=== PATIENT | female | born 1930 | race Caucasian/White ===

== ENCOUNTER → 2017-03-25 | Outpatient (CLI) | payer OTHER ==
[~2017-03-25] MED LIST: ACEB200C9 OR; AMAN100C12 OR; LATA0.0015 OP; METHIMAZOLE; OMEPRAZOLE; SELE5CAP OR
[2017-03-25 08:44] LABS: Basophils # (auto) 0 uL; Basophils % (auto) 0.5 % (0.0-2.0); CONDITION Y; Eosinophils # (auto) 0.1 uL; Eosinophils % (auto) 2.7 % (0.0-7.0); Hematocrit 42.2 % (36.0-46.0); Hemoglobin 14.2 g/dL (12.2-16.2); Lymphocytes # (auto) 1.1 uL; Lymphocytes % (auto) 20.1 % (10.0-50.0); Mean Corpuscular Hemoglobin 31.1 pg (28.0-32.0); Mean Corpuscular Hgb Conc. 33.7 g/dL (32.0-36.0); Mean Corpuscular Volume 92.3 fL (80.0-100.0); Mean Platelet Volume 8.3 fL (7.4-10.4); Monocytes # (auto) 0.4 uL; Monocytes % (auto) 7.4 % (0.0-12.0); Neutrophils # (auto) 3.7 uL; Neutrophils % (auto) 69.3 % (37.0-80.0); Platelet Count (auto) 233 10^3/uL (140-450); Red Cell Distribution Width 13.3 % (11.6-16.0); White Blood Cell 5.4 10^3/uL (4.4-10.8)
[2017-03-25 09:23] LABS: Albumin 3.7 g/dL (3.4-5.0); BUN/Creatinine Ratio 33.8; Bilirubin, Total 0.6 mg/dL (0.2-1.0); Total Protein 7.2 g/dL (6.4-8.2)
== END | disposition home or self-care (01) ==
LOC: LAB 08:16
PROVIDERS: ATTEND Internal Medicine
DX: G50.9 Disorder of trigeminal nerve, unspecified (principal); N18.2 Chronic kidney disease, stage 2 (mild); Z00.00 Encounter for general adult medical examination without abnormal findings
CPT/HCPCS: 36415; 80053; 80061; 82043; 82306; 84443; 85025

== ENCOUNTER → 2017-03-30 | Outpatient (CLI) | payer OTHER | END | disposition home or self-care (01) | LOC: LAB 11:00 | PROVIDERS: ATTEND Internal Medicine | DX: Z00.00 Encounter for general adult medical examination without abnormal findings (principal); N18.2 Chronic kidney disease, stage 2 (mild) | CPT/HCPCS: 82270 ==

== ENCOUNTER 2018-06-26 15:30 | Inpatient (IN) | payer OTHER ==
[~2018-06-26] VITALS: Ht 167.6 cm; Wt 62.9 kg
[2018-06-26] MEDS ORDERED: cloNIDine HCL 0.1 MG TAB PO ONE (16:15)
[2018-06-26 16:37] LABS: Urine Bacteria FEW /hpf (None Seen); Urine Blood Negative /uL (Negative); Urine Specific Gravity 1.007 (1.001-1.035); Urine WBC 3 /hpf (0 - 5)
[2018-06-26 17:05] LABS: Basophils # (auto) 0 uL; Basophils % (auto) 0.8 % (0.0-2.0); Eosinophils # (auto) 0.1 uL; Eosinophils % (auto) 1.7 % (0.0-7.0); Hematocrit 42.4 % (36.0-46.0); Hemoglobin 14.4 g/dL (12.2-16.2); Lymphocytes # (auto) 1.1 uL; Lymphocytes % (auto) 23.9 % (10.0-50.0); Mean Corpuscular Hemoglobin 31.8 pg (28.0-32.0); Mean Corpuscular Hgb Conc. 33.9 g/dL (32.0-36.0); Mean Corpuscular Volume 93.8 fL (80.0-100.0); Monocytes # (auto) 0.3 uL; Monocytes % (auto) 6.4 % (0.0-12.0); Neutrophils % (auto) 67.2 % (37.0-80.0); Nucleated Red Blood Cells % 0.1 %; Platelet Count (auto) 193 10^3/uL (140-450); Red Blood Cells 4.52 10^6/uL (4.0-5.20); Red Cell Distribution Width 13.3 % (11.8-14.3); White Blood Cell 4.5 10^3/uL (4.4-10.8)
[2018-06-26 17:25] LABS: Albumin 3.6 g/dL (3.4-5.0); BUN/Creatinine Ratio 19.3; Bilirubin, Total 0.5 mg/dL (0.2-1.0); Magnesium 2.8 mg/dL (1.6-2.6); Total Protein 7.4 g/dL (6.4-8.2)
[2018-06-26] MEDS ORDERED: ENOXAPARIN SOD 80 MG/0.8ML SYRINGE SC ONE (17:45)
[2018-06-26] MEDS ORDERED: HYDROcodone-ACET 5/325MG TAB PO PRN (19:00)
[2018-06-26] MEDS ORDERED: LORazepam 0.5 MG TAB PO PRN (19:00)
[2018-06-26] MEDS ORDERED: ONDANSETRON HCL 4 MG/2 ML VIAL IV PRN (19:00)
[2018-06-26] MEDS ORDERED: NITROGLYCERIN 0.4 MG SL TAB SL PRN (19:00)
[2018-06-26] MEDS ORDERED: TEMAZEPAM 15 MG CAP PO PRN (19:00)
[2018-06-26] MEDS ORDERED: ACETAMINOPHEN 500 MG TAB PO PRN (19:00)
[2018-06-26] MEDS ORDERED: MORPHINE SULFATE 4 MG/ML SYR/VIAL IV PRN ×2 (19:00)
[2018-06-26] MEDS ORDERED: LACTULOSE 20Gm/30ML SOLN PO PRN (19:00)
[2018-06-26] MEDS ORDERED: LABETALOL HCL 5 MG/ML ML 20ML VIAL IV PRN (21:15)
[2018-06-26] MEDS: ATORVASTATIN 20 MG TAB PO SCH (21:47)
[2018-06-26] MEDS: SODIUM CHLOR 0.9% PF (SALINE LOCK) 10ML VIAL/SYR IV SCH (21:47)
[2018-06-26] MEDS: ISOSORBIDE DINITRATE 10 MG TAB PO SCH (21:47)
[2018-06-26] MEDS: CARBIDOPA W LEVODOPA 10/100mg TABLET PO SCH (21:48)
[2018-06-26] MEDS: METOPROLOL TARTRATE 25 MG TAB PO SCH (21:48)
[2018-06-26] MEDS ORDERED: AMANTADINE HCL 100 MG OR SCH (22:00)
[2018-06-26] MEDS ORDERED: cefTRIAXone 1GM/10ml IVPUSH 10 ML IV ONE (22:30)
[2018-06-26 23:11] VITALS: BP 108/54
[2018-06-26 23:47] VITALS: BP 156/85
[2018-06-27 03:56] LABS: BUN/Creatinine Ratio 25.4; Calcium 8.2 mg/dL (8.5-10.1); Potassium 3.9 mmol/L (3.5-5.1)
[2018-06-27 03:58] LABS: Bilirubin, Total 0.5 mg/dL (0.2-1.0); Total Protein 6.3 g/dL (6.4-8.2)
[2018-06-27] MEDS: SODIUM CHLOR 0.9% PF (SALINE LOCK) 10ML VIAL/SYR IV SCH ×3 (06:16→21:35)
[2018-06-27] MEDS: ISOSORBIDE DINITRATE 10 MG TAB PO SCH ×3 (06:16→21:34)
[2018-06-27] MEDS: CARBIDOPA W LEVODOPA 10/100mg TABLET PO SCH (06:17)
[2018-06-27 08:00] VITALS: BP 110/63
[2018-06-27 09:46] LABS: Folate (Folic Acid) > 24.00 ng/mL (5.38-24)
[2018-06-27] MEDS ORDERED: ASPirin 81 mg TAB PO SCH (10:00)
[2018-06-27] MEDS ORDERED: METHIMAZOLE 5 MG SCH (10:00)
[2018-06-27] MEDS: METOPROLOL TARTRATE 25 MG TAB PO SCH ×2 (10:00→21:35)
[2018-06-27] MEDS ORDERED: AMANTADINE HCL 100 MG CAP PO SCH (10:00)
[2018-06-27] MEDS ORDERED: ENOXAPARIN SOD 40 MG/0.4 ML SYRINGE SC SCH (10:00)
[2018-06-27] MEDS: METHIMAZOLE 5 MG TAB PO SCH (10:34)
[2018-06-27] MEDS: PANTOPRAZOLE 40 MG TAB PO SCH (10:37)
[2018-06-27] MEDS: ENALAPRIL MALEATE 10 MG TAB PO SCH (10:37)
[2018-06-27 11:45] VITALS: BP 118/62
[2018-06-27] MEDS: CARBIDOPA W LEVODOPA 25/100mg TABLET PO SCH ×2 (15:01→21:50)
[2018-06-27 15:55] VITALS: BP 92/47
[2018-06-27 19:50] VITALS: BP 121/58
[2018-06-27] MEDS: ATORVASTATIN 20 MG TAB PO SCH (21:49)
[2018-06-27] MEDS: LATANOPROST 0.005 % OPTH(EYE) SOL 2.5ML EACHEYE SCH (21:49)
[2018-06-27] MEDS ORDERED: cefTRIAXone 1GM/10ml IVPUSH 10 ML IV SCH (22:00)
[2018-06-28] VITALS (7 sets, daily range): BP systolic 112–174; BP diastolic 57–86
[2018-06-28 05:32] LABS: Basophils # (auto) 0 uL; Basophils % (auto) 0.8 % (0.0-2.0); Eosinophils # (auto) 0.2 uL; Hematocrit 38.2 % (36.0-46.0); Hemoglobin 12.9 g/dL (12.2-16.2); Lymphocytes # (auto) 1.7 uL; Mean Corpuscular Hemoglobin 31.7 pg (28.0-32.0); Mean Corpuscular Hgb Conc. 33.8 g/dL (32.0-36.0); Monocytes # (auto) 0.5 uL; Neutrophils % (auto) 55.2 % (37.0-80.0); Nucleated Red Blood Cells % 0.1 %; Platelet Count (auto) 158 10^3/uL (140-450); Red Blood Cells 4.07 10^6/uL (4.0-5.20); Red Cell Distribution Width 13.4 % (11.8-14.3); White Blood Cell 5.4 10^3/uL (4.4-10.8)
[2018-06-28] MEDS: SODIUM CHLOR 0.9% PF (SALINE LOCK) 10ML VIAL/SYR IV SCH ×3 (05:54→21:45)
[2018-06-28] MEDS: ISOSORBIDE DINITRATE 10 MG TAB PO SCH ×3 (05:56→21:45)
[2018-06-28] MEDS: CARBIDOPA W LEVODOPA 25/100mg TABLET PO SCH ×3 (05:56→21:46)
[2018-06-28 06:02] LABS: BUN/Creatinine Ratio 30.4; Calcium 8.5 mg/dL (8.5-10.1); Magnesium 2.8 mg/dL (1.6-2.6); Potassium 3.9 mmol/L (3.5-5.1)
[2018-06-28] MEDS ORDERED: ADENOSINE 54 MG in GIVE UN-DILUTED 0 ML IV ONE (09:30)
[2018-06-28] MEDS: METOPROLOL TARTRATE 25 MG TAB PO SCH ×2 (09:39→21:46)
[2018-06-28] MEDS: METHIMAZOLE 5 MG TAB PO SCH (09:40)
[2018-06-28] MEDS: PANTOPRAZOLE 40 MG TAB PO SCH (09:40)
[2018-06-28] MEDS: ENALAPRIL MALEATE 10 MG TAB PO SCH (09:42)
[2018-06-28] MEDS ORDERED: ATOR10TA PO (10:57)
[2018-06-28] MEDS ORDERED: MET25T PO (11:07)
[2018-06-28] MEDS ORDERED: CARB25TA22 PO (11:10)
[2018-06-28] MEDS ORDERED: OMEP20TA PO (11:13)
[2018-06-28] MEDS ORDERED: RASA1TAB4 PO (11:25)
[2018-06-28] MEDS ORDERED: LISI-646 PO (11:34)
[2018-06-28] MEDS: LATANOPROST 0.005 % OPTH(EYE) SOL 2.5ML EACHEYE SCH (21:45)
[2018-06-28] MEDS: ATORVASTATIN 20 MG TAB PO SCH (21:46)
[2018-06-29] VITALS (7 sets, daily range): BP systolic 91–148; BP diastolic 39–87
[2018-06-29] MEDS: SODIUM CHLOR 0.9% PF (SALINE LOCK) 10ML VIAL/SYR IV SCH ×3 (05:35→22:30)
[2018-06-29] MEDS: ISOSORBIDE DINITRATE 10 MG TAB PO SCH (05:36)
[2018-06-29] MEDS: CARBIDOPA W LEVODOPA 25/100mg TABLET PO SCH ×3 (05:36→22:08)
[2018-06-29 05:45] LABS: Basophils # (auto) 0 uL; Basophils % (auto) 0.9 % (0.0-2.0); Eosinophils # (auto) 0.2 uL; Eosinophils % (auto) 4.1 % (0.0-7.0); Hematocrit 40.5 % (36.0-46.0); Hemoglobin 13.9 g/dL (12.2-16.2); Lymphocytes # (auto) 1.4 uL; Lymphocytes % (auto) 28.4 % (10.0-50.0); Mean Corpuscular Hemoglobin 31.9 pg (28.0-32.0); Mean Corpuscular Hgb Conc. 34.2 g/dL (32.0-36.0); Mean Corpuscular Volume 93.2 fL (80.0-100.0); Monocytes # (auto) 0.5 uL; Monocytes % (auto) 10.6 % (0.0-12.0); Neutrophils # (auto) 2.8 uL; Nucleated Red Blood Cells % 0.1 %; Platelet Count (auto) 175 10^3/uL (140-450); Red Blood Cells 4.34 10^6/uL (4.0-5.20); Red Cell Distribution Width 13.1 % (11.8-14.3)
[2018-06-29 05:50] LABS: INR 1.01 (0.9-1.15); Partial Thromboplastin Time 27.4 sec (23.78-33.04); Prothrombin Time 10.8 sec (9.27-12.13)
[2018-06-29 05:55] LABS: Albumin 3.1 g/dL (3.4-5.0); BUN/Creatinine Ratio 32.9; Calcium 8.1 mg/dL (8.5-10.1)
[2018-06-29 05:57] LABS: Bilirubin, Total 0.5 mg/dL (0.2-1.0); Total Protein 6.6 g/dL (6.4-8.2)
[2018-06-29] MEDS: METOPROLOL TARTRATE 25 MG TAB PO SCH ×2 (10:42→22:00)
[2018-06-29] MEDS: LISINOPRIL 20 MG TAB PO SCH (10:42)
[2018-06-29] MEDS: PANTOPRAZOLE 40 MG TAB PO SCH (10:43)
[2018-06-29] MEDS: METHIMAZOLE 5 MG TAB PO SCH (10:43)
[2018-06-29] MEDS ORDERED: LIDOCAINE 2%HCL (LOCAL ANESTH.) INJ 20ML MDV ONE (13:50)
[2018-06-29] MEDS ORDERED: IOHEXOL 350 MG/ML 100ML IJ ONE (13:50)
[2018-06-29] MEDS ORDERED: ANGIOMAX 250 MG VIAL IV ONE (14:00)
[2018-06-29] MEDS ORDERED: SODIUM CHL 0.9% 0 ML ONE (14:01)
[2018-06-29] MEDS ORDERED: MIDAZOLAM HCL 1MG/1ML-2 ML VIAL ONE (14:01)
[2018-06-29] MEDS ORDERED: fentaNYL CITRATE 100 MCG/2 ML VL ONE (14:01)
[2018-06-29] MEDS ORDERED: hydrALAZINE HCL 20 MG/ML VL ONE (15:23)
[2018-06-29] MEDS: ATORVASTATIN 20 MG TAB PO SCH (22:08)
[2018-06-29] MEDS: LATANOPROST 0.005 % OPTH(EYE) SOL 2.5ML EACHEYE SCH (22:14)
[2018-06-30] VITALS: BP 110/75
[2018-06-30 04:00] VITALS: BP 110/56
[2018-06-30] MEDS: CARBIDOPA W LEVODOPA 25/100mg TABLET PO SCH (06:01)
[2018-06-30] MEDS: SODIUM CHLOR 0.9% PF (SALINE LOCK) 10ML VIAL/SYR IV SCH (06:01)
[2018-06-30 06:15] VITALS: BP 131/57
[2018-06-30 08:40] VITALS: BP 121/72
[2018-06-30] MEDS: LISINOPRIL 20 MG TAB PO SCH (11:10)
[2018-06-30] MEDS: METHIMAZOLE 5 MG TAB PO SCH (11:10)
[2018-06-30] MEDS: METOPROLOL TARTRATE 25 MG TAB PO SCH (11:11)
[2018-06-30] MEDS: PANTOPRAZOLE 40 MG TAB PO SCH (11:11)
== END 2018-06-30 11:25 | disposition home health service (06) | DRG 280 ==
LOC: ER 15:30 → EDBD 15:30 → TELE 15:31 → TELE-WESTW 20:20 → DOU IN ICU 21:30
PROVIDERS: ADMIT Internal Medicine; ATTEND Internal Medicine
PROC: 4A023N7 Measurement of Cardiac Sampling and Pressure, Left Heart, Percutaneous Approach (ICD-10-PCS; principal; 2018-06-29)
PROC: B2111ZZ Fluoroscopy of Multiple Coronary Arteries using Low Osmolar Contrast (ICD-10-PCS; 2018-06-29)
PROC: B2151ZZ Fluoroscopy of Left Heart using Low Osmolar Contrast (ICD-10-PCS; 2018-06-29)
DX: I21.4 Non-ST elevation (NSTEMI) myocardial infarction (principal); G93.41 Metabolic encephalopathy; N39.0 Urinary tract infection, site not specified; I16.1 Hypertensive emergency; I62.9 Nontraumatic intracranial hemorrhage, unspecified; E05.90 Thyrotoxicosis, unspecified without thyrotoxic crisis or storm; E78.5 Hyperlipidemia, unspecified; F17.200 Nicotine dependence, unspecified, uncomplicated; G20 Parkinson's disease; G89.29 Other chronic pain; I10 Essential (primary) hypertension; I25.10 Atherosclerotic heart disease of native coronary artery without angina pectoris; I70.0 Atherosclerosis of aorta; I73.9 Peripheral vascular disease, unspecified; W19.XXXA Unspecified fall, initial encounter; W18.39XA Other fall on same level, initial encounter; L40.9 Psoriasis, unspecified; M19.90 Unspecified osteoarthritis, unspecified site; M48.00 Spinal stenosis, site unspecified; Y93.89 Activity, other specified; Y92.89 Other specified places as the place of occurrence of the external cause; Z80.8 Family history of malignant neoplasm of other organs or systems; Z82.49 Family history of ischemic heart disease and other diseases of the circulatory system; Z90.710 Acquired absence of both cervix and uterus; Z79.899 Other long term (current) drug therapy; Z88.0 Allergy status to penicillin; Z79.82 Long term (current) use of aspirin; Z90.49 Acquired absence of other specified parts of digestive tract
CPT/HCPCS: 36415; 70450; 71045; 80048; 80053; 80061; 81001; 82607; 82746; 83735; 83880; 84443; 84484; 85025; 85610; 85652; 85730; 86141; 86850; 86900; 86901; 87086; 93005; 93017; 93306; 93886; 93970; 96372; 96374; 97116; 99152; A6257; J0153; J0696; J2250

== ENCOUNTER → 2019-06-07 | Outpatient (CLI) | payer OTHER ==
[~2019-06-07] MED LIST changes: -ACEB200C9 OR; +ATOR10TA PO; +CARB25TA22 PO; +LISI-646 PO; +MET25T PO; +OMEP20TA PO; +RASA1TAB4 PO
[2019-06-07 08:37] LABS: Basophils # (auto) 0 uL; Basophils % (auto) 1.1 % (0.0-2.0); Eosinophils # (auto) 0.1 uL; Eosinophils % (auto) 2.7 % (0.0-7.0); Hematocrit 40.3 % (36.0-46.0); Hemoglobin 13.6 g/dL (12.2-16.2); Lymphocytes % (auto) 26.1 % (10.0-50.0); Mean Corpuscular Hemoglobin 31.3 pg (28.0-32.0); Mean Corpuscular Hgb Conc. 33.8 g/dL (32.0-36.0); Mean Corpuscular Volume 92.5 fL (80.0-100.0); Monocytes # (auto) 0.3 uL; Monocytes % (auto) 8.3 % (0.0-12.0); Neutrophils # (auto) 2.3 uL; Neutrophils % (auto) 61.8 % (37.0-80.0); Nucleated Red Blood Cells % 0.2 %; Platelet Count (auto) 158 10^3/uL (140-450); Red Blood Cells 4.36 10^6/uL (4.0-5.20); Red Cell Distribution Width 13.4 % (11.8-14.3); White Blood Cell 3.7 10^3/uL (4.4-10.8)
[2019-06-07 09:14] LABS: Potassium 4.1 mmol/L (3.5-5.1)
[2019-06-07 09:21] LABS: Albumin 3.5 g/dL (3.4-5.0); BUN/Creatinine Ratio 25.3; Calcium 8.4 mg/dL (8.5-10.1)
[2019-06-07 09:24] LABS: Bilirubin, Total 0.5 mg/dL (0.2-1.0); Total Protein 6.9 g/dL (6.4-8.2)
== END | disposition home or self-care (01) ==
LOC: LAB 08:06
PROVIDERS: ATTEND Internal Medicine
DX: Z12.11 Encounter for screening for malignant neoplasm of colon (principal); I10 Essential (primary) hypertension; R60.9 Edema, unspecified; E78.5 Hyperlipidemia, unspecified; G89.29 Other chronic pain
CPT/HCPCS: 36415; 80053; 80061; 82306; 84443; 85025

== ENCOUNTER → 2019-06-16 | Outpatient (CLI) | payer OTHER | END | disposition home or self-care (01) | LOC: LAB 12:36 | PROVIDERS: ATTEND Internal Medicine | DX: Z12.11 Encounter for screening for malignant neoplasm of colon (principal); I10 Essential (primary) hypertension; R60.9 Edema, unspecified | CPT/HCPCS: 82274 ==

== ENCOUNTER → 2021-02-11 | Outpatient (CLI) | payer OTHER ==
[~2021-02-11] MED LIST changes: -LATA0.0015 OP; +LATA0.0019 OP; -LISI-646 PO; +LISI20TA28 PO; -SELE5CAP OR; +SELE5CAP3 OR
[2021-02-11 08:16] LABS: Basophils # (auto) 0 10 ^3/uL (0-0.2); Basophils % (auto) 1.1 % (0.0-2.0); Eosinophils # (auto) 0.1 10 ^3/uL (0-0.8); Eosinophils % (auto) 1.8 % (0.0-7.0); Hematocrit 39.9 % (36.0-46.0); Hemoglobin 13.6 g/dL (12.2-16.2); Lymphocytes # (auto) 0.9 10 ^3/uL (0.4-5.4); Lymphocytes % (auto) 22.5 % (10.0-50.0); Mean Corpuscular Hemoglobin 31.4 pg (28.0-32.0); Mean Corpuscular Hgb Conc. 34.2 g/dL (32.0-36.0); Mean Corpuscular Volume 91.8 fL (80.0-100.0); Monocytes # (auto) 0.4 10 ^3/uL (0-1.3); Monocytes % (auto) 8.6 % (0.0-12.0); Neutrophils # (auto) 2.8 10 ^3/uL (1.6-8.6); Nucleated Red Blood Cells % 0.3 %; Platelet Count (auto) 211 10^3/uL (140-450); Red Blood Cells 4.35 10^6/uL (4.0-5.20); Red Cell Distribution Width 13.7 % (11.8-14.3); White Blood Cell 4.2 10^3/uL (4.4-10.8)
[2021-02-11 08:43] LABS: Albumin 3.7 g/dL (3.4-5.0); Calcium 8.8 mg/dL (8.5-10.1); Potassium 3.9 mmol/L (3.5-5.1)
[2021-02-11 08:51] LABS: BUN/Creatinine Ratio 36.6; Bilirubin, Total 0.6 mg/dL (0.2-1.0); Total Protein 7.5 g/dL (6.4-8.2)
[2021-02-11 08:52] LABS: Free T4 (Free Thyroxine) 1.32 ng/dL (0.89-1.76); T3 Total 0.81 ng/mL (0.60-1.81)
== END | disposition home or self-care (01) ==
LOC: LAB 07:31
PROVIDERS: ATTEND Internal Medicine
DX: I10 Essential (primary) hypertension (principal); E78.5 Hyperlipidemia, unspecified; E03.9 Hypothyroidism, unspecified
CPT/HCPCS: 36415; 80053; 80061; 82306; 84439; 84443; 84480; 85025

== ENCOUNTER 2021-03-15 13:13 | Inpatient (IN) | payer OTHER ==
[~2021-03-15] VITALS: Ht 152.4 cm; Wt 67.5 kg
[2021-03-15 13:59] LABS: Basophils # (auto) 0 10 ^3/uL (0-0.2); Basophils % (auto) 0.8 % (0.0-2.0); Eosinophils # (auto) 0.1 10 ^3/uL (0-0.8); Eosinophils % (auto) 2.4 % (0.0-7.0); Hematocrit 39.8 % (36.0-46.0); Hemoglobin 13.7 g/dL (12.2-16.2); Lymphocytes # (auto) 0.7 10 ^3/uL (0.4-5.4); Lymphocytes % (auto) 12.6 % (10.0-50.0); Mean Corpuscular Hemoglobin 32.1 pg (28.0-32.0); Mean Corpuscular Hgb Conc. 34.6 g/dL (32.0-36.0); Mean Corpuscular Volume 92.8 fL (80.0-100.0); Monocytes # (auto) 0.5 10 ^3/uL (0-1.3); Monocytes % (auto) 8.3 % (0.0-12.0); Neutrophils # (auto) 4.4 10 ^3/uL (1.6-8.6); Neutrophils % (auto) 75.9 % (37.0-80.0); Platelet Count (auto) 188 10^3/uL (140-450); Red Blood Cells 4.29 10^6/uL (4.0-5.20); Red Cell Distribution Width 13.4 % (11.8-14.3); White Blood Cell 5.7 10^3/uL (4.4-10.8)
[2021-03-15] MEDS ORDERED: SODIUM CHLORIDE 0.9% 1,000 ML IVB ONE (14:15)
[2021-03-15 14:16] LABS: Alanine Aminotransferase 38 U/L (13-56); Albumin 3.2 g/dL (3.4-5.0); Anion Gap 7 (5-15); Blood Urea Nitrogen 30 mg/dL (7-18); Calcium 8.7 mg/dL (8.5-10.1); Carbon Dioxide 26 mmol/L (21-32); Chloride 110 mmol/L (98-107); Glucose 97 mg/dL (74-106); Magnesium 2.7 mg/dL (1.6-2.6); Potassium 3.4 mmol/L (3.5-5.1); Sodium 143 mmol/L (136-145)
[2021-03-15 14:22] LABS: Alkaline Phosphatase 64 U/L (45-117); Aspartate Aminotransferase 127 U/L (15-37); BUN/Creatinine Ratio 33.3; Bilirubin, Total 0.8 mg/dL (0.2-1.0); GFR African American 76 mL/min; GFR Non-African American 63 mL/min; Total Protein 6.7 g/dL (6.4-8.2)
[2021-03-15 15:00] LABS: Lactic Acid w/Reflex 2.1 mmol/L (0.4-2.0)
[2021-03-15 15:24] LABS: INR 1.06 (0.9-1.15); Partial Thromboplastin Time 23.2 sec (23.0-31.2)
[2021-03-15] MEDS ORDERED: NITROGLYCERIN 0.4 MG SL TAB SL PRN (17:00)
[2021-03-15] MEDS ORDERED: MORPHINE SULF INJ 2 MG/ML SYRINGE 1ML IV PRN ×2 (17:00)
[2021-03-15] MEDS ORDERED: DOCUSATE SOD 100 MG CAP PO PRN (17:00)
[2021-03-15] MEDS ORDERED: ONDANSETRON HCL 4 MG/2 ML VIAL IV PRN (17:00)
[2021-03-15] MEDS ORDERED: POTASSIUM EFFERVESENT TAB 25 MEQ PO ONE (17:15)
[2021-03-15] MEDS ORDERED: levoFLOXacin 500MG 100 ML IV SCH (17:44)
[2021-03-15] MEDS ORDERED: levoFLOXacin 500MG 100 ML IV ONE (17:45)
[2021-03-15] MEDS: METOPROLOL TARTRATE 25 MG TAB PO SCH (21:01)
[2021-03-15 21:32] VITALS: BP 160/68
[2021-03-15] MEDS: SELEGILINE HCL 5 MG CAP PO SCH (21:55)
[2021-03-15] MEDS: LATANOPROST 0.005 % OPTH(EYE) SOL 2.5ML OP SCH (22:00)
[2021-03-15] MEDS: AMANTADINE HCL 100 MG CAP PO SCH (22:00)
[2021-03-15] MEDS: CLINDAMYCIN 300MG IV 50 ML IV SCH (22:58)
[2021-03-16 00:19] VITALS: BP 160/68
[2021-03-16 05:00] VITALS: BP 144/76
[2021-03-16] MEDS: CLINDAMYCIN 300MG IV 50 ML IV SCH ×3 (05:44→22:00)
[2021-03-16 06:49] LABS: Calcium 8.1 mg/dL (8.5-10.1); Potassium 3.9 mmol/L (3.5-5.1)
[2021-03-16 06:53] LABS: BUN/Creatinine Ratio 29.7
[2021-03-16 09:00] VITALS: BP 148/70
[2021-03-16] MEDS: SELEGILINE HCL 5 MG CAP PO SCH ×2 (10:00→22:00)
[2021-03-16] MEDS ORDERED: FAMOTIDINE 20 MG TAB PO SCH (10:00)
[2021-03-16] MEDS: LISINOPRIL 20 MG TAB PO SCH (10:30)
[2021-03-16] MEDS: METOPROLOL TARTRATE 25 MG TAB PO SCH ×2 (10:30→22:03)
[2021-03-16] MEDS: AMANTADINE HCL 100 MG CAP PO SCH ×2 (10:30→22:04)
[2021-03-16] MEDS: levoFLOXacin 250MG 50 ML IV SCH (10:59)
[2021-03-16 13:00] VITALS: BP 113/77
[2021-03-16] MEDS: methIMAzole 5 MG TAB PO SCH (14:36)
[2021-03-16] MEDS: PANTOPRAZOLE 40 MG TAB PO SCH (14:37)
[2021-03-16] MEDS: CARBIDOPA W LEVODOPA 25/100mg TABLET PO SCH ×2 (14:38→22:03)
[2021-03-16] MEDS ORDERED: POTA10TA51 PO (17:19)
[2021-03-16] MEDS ORDERED: FURO20TA3 PO (17:19)
[2021-03-16] MEDS ORDERED: MELO1TAB56 PO (17:19)
[2021-03-16] MEDS ORDERED: OXYB5TAB61 GT (17:19)
[2021-03-16] MEDS ORDERED: DONE1TAB88 PO (17:19)
[2021-03-16] MEDS ORDERED: TRAZ50TA2 PO (17:19)
[2021-03-16 22:00] VITALS: BP 134/58
[2021-03-16] MEDS: LATANOPROST 0.005 % OPTH(EYE) SOL 2.5ML OP SCH (22:00)
[2021-03-16] MEDS: ATORVASTATIN 20 MG TAB PO SCH (22:03)
[2021-03-17 04:44] VITALS: BP 122/63
[2021-03-17] MEDS: CLINDAMYCIN 300MG IV 50 ML IV SCH ×3 (06:23→21:11)
[2021-03-17] MEDS: CARBIDOPA W LEVODOPA 25/100mg TABLET PO SCH ×3 (06:23→21:11)
[2021-03-17 06:45] LABS: Basophils # (auto) 0.1 10 ^3/uL (0-0.2); Eosinophils # (auto) 0.3 10 ^3/uL (0-0.8); Eosinophils % (auto) 5.2 % (0.0-7.0); Hemoglobin 12.6 g/dL (12.2-16.2); Lymphocytes # (auto) 0.9 10 ^3/uL (0.4-5.4); Lymphocytes % (auto) 15.9 % (10.0-50.0); Mean Corpuscular Hemoglobin 31.5 pg (28.0-32.0); Mean Corpuscular Hgb Conc. 34.1 g/dL (32.0-36.0); Mean Corpuscular Volume 92.2 fL (80.0-100.0); Monocytes # (auto) 0.5 10 ^3/uL (0-1.3); Monocytes % (auto) 9.6 % (0.0-12.0); Neutrophils # (auto) 3.9 10 ^3/uL (1.6-8.6); Neutrophils % (auto) 68.3 % (37.0-80.0); Platelet Count (auto) 169 10^3/uL (140-450); Red Blood Cells 4.01 10^6/uL (4.0-5.20); Red Cell Distribution Width 13.2 % (11.8-14.3); White Blood Cell 5.7 10^3/uL (4.4-10.8)
[2021-03-17 07:01] LABS: BUN/Creatinine Ratio 28.1; Calcium 7.9 mg/dL (8.5-10.1); Potassium 3.7 mmol/L (3.5-5.1)
[2021-03-17 09:00] VITALS: BP 119/52
[2021-03-17] MEDS: methIMAzole 5 MG TAB PO SCH (09:12)
[2021-03-17] MEDS: METOPROLOL TARTRATE 25 MG TAB PO SCH (09:12)
[2021-03-17] MEDS: LISINOPRIL 20 MG TAB PO SCH (09:13)
[2021-03-17] MEDS: PANTOPRAZOLE 40 MG TAB PO SCH (09:13)
[2021-03-17] MEDS: AMANTADINE HCL 100 MG CAP PO SCH ×2 (09:14→21:12)
[2021-03-17] MEDS: levoFLOXacin 250MG 50 ML IV SCH (09:18)
[2021-03-17] MEDS: SELEGILINE HCL 5 MG CAP PO SCH ×2 (09:18→21:12)
[2021-03-17 12:49] VITALS: BP 157/61
[2021-03-17 16:47] VITALS: BP 162/73
[2021-03-17] MEDS: ATORVASTATIN 20 MG TAB PO SCH (21:11)
[2021-03-17] MEDS: LATANOPROST 0.005 % OPTH(EYE) SOL 2.5ML OP SCH (21:49)
[2021-03-17 22:00] VITALS: BP 166/45
[2021-03-18 05:00] VITALS: BP 159/71
[2021-03-18] MEDS: CARBIDOPA W LEVODOPA 25/100mg TABLET PO SCH ×3 (05:40→21:21)
[2021-03-18] MEDS: CLINDAMYCIN 300MG IV 50 ML IV SCH ×3 (05:41→21:22)
[2021-03-18 06:36] LABS: Basophils # (auto) 0.1 10 ^3/uL (0-0.2); Eosinophils # (auto) 0.3 10 ^3/uL (0-0.8); Eosinophils % (auto) 5.8 % (0.0-7.0); Hemoglobin 14.1 g/dL (12.2-16.2); Lymphocytes # (auto) 0.9 10 ^3/uL (0.4-5.4); Lymphocytes % (auto) 15.8 % (10.0-50.0); Mean Corpuscular Hemoglobin 32.3 pg (28.0-32.0); Mean Corpuscular Hgb Conc. 35.2 g/dL (32.0-36.0); Mean Corpuscular Volume 91.9 fL (80.0-100.0); Monocytes # (auto) 0.5 10 ^3/uL (0-1.3); Monocytes % (auto) 8.8 % (0.0-12.0); Neutrophils # (auto) 3.7 10 ^3/uL (1.6-8.6); Neutrophils % (auto) 68.6 % (37.0-80.0); Nucleated Red Blood Cells % 0.2 %; Platelet Count (auto) 163 10^3/uL (140-450); Red Blood Cells 4.36 10^6/uL (4.0-5.20); Red Cell Distribution Width 13.1 % (11.8-14.3); White Blood Cell 5.4 10^3/uL (4.4-10.8)
[2021-03-18 06:45] LABS: BUN/Creatinine Ratio 23.8; Calcium 8.4 mg/dL (8.5-10.1); Potassium 3.8 mmol/L (3.5-5.1)
[2021-03-18 08:00] VITALS: BP 157/65
[2021-03-18] MEDS: levoFLOXacin 250MG 50 ML IV SCH (09:19)
[2021-03-18] MEDS: LISINOPRIL 20 MG TAB PO SCH (09:20)
[2021-03-18] MEDS: AMANTADINE HCL 100 MG CAP PO SCH ×2 (09:20→22:47)
[2021-03-18] MEDS: amLODIPine BESYLATE 5 MG TAB PO SCH (09:20)
[2021-03-18] MEDS: PANTOPRAZOLE 40 MG TAB PO SCH (09:20)
[2021-03-18] MEDS: methIMAzole 5 MG TAB PO SCH (09:20)
[2021-03-18] MEDS: SELEGILINE HCL 5 MG CAP PO SCH ×2 (09:21→21:23)
[2021-03-18 12:00] VITALS: BP 116/63
[2021-03-18 13:11] LABS: Urine Bacteria FEW /hpf (None Seen); Urine Blood Negative /uL (Negative); Urine Hyaline Cast FEW /lpf (0 - 2); Urine Mucus FEW (None Seen); Urine Specific Gravity 1.011 (1.001-1.035); Urine WBC 2 /hpf (0 - 5)
[2021-03-18 16:00] VITALS: BP 140/74
[2021-03-18] MEDS: ATORVASTATIN 20 MG TAB PO SCH (21:20)
[2021-03-18] MEDS: DONEPEZIL HYDROCHLORIDE 5 MG TAB PO SCH (21:22)
[2021-03-18] MEDS: LATANOPROST 0.005 % OPTH(EYE) SOL 2.5ML OP SCH ×2 (21:22→22:00)
[2021-03-18 22:00] VITALS: BP 152/68
[2021-03-19 05:00] VITALS: BP 159/49
[2021-03-19] MEDS: CLINDAMYCIN 300MG IV 50 ML IV SCH (05:20)
[2021-03-19] MEDS: CARBIDOPA W LEVODOPA 25/100mg TABLET PO SCH ×3 (05:21→21:10)
[2021-03-19 08:15] VITALS: BP 140/71
[2021-03-19 09:00] VITALS: BP 140/71
[2021-03-19] MEDS: methIMAzole 5 MG TAB PO SCH (09:31)
[2021-03-19] MEDS: levoFLOXacin 250MG 50 ML IV SCH (09:31)
[2021-03-19] MEDS: PANTOPRAZOLE 40 MG TAB PO SCH (09:32)
[2021-03-19] MEDS: LISINOPRIL 20 MG TAB PO SCH (09:32)
[2021-03-19] MEDS: amLODIPine BESYLATE 5 MG TAB PO SCH (09:32)
[2021-03-19] MEDS: AMANTADINE HCL 100 MG CAP PO SCH ×2 (09:33→21:25)
[2021-03-19] MEDS: SELEGILINE HCL 5 MG CAP PO SCH ×2 (10:00→21:09)
[2021-03-19] MEDS ORDERED: POTASSIUM CHL 10 Meq TABLET PO ONE (11:00)
[2021-03-19] MEDS ORDERED: FUROSEMIDE 20 MG TAB PO ONE (11:00)
[2021-03-19] MEDS: ACETAMINOPHEN 500 MG TAB PO PRN (12:55)
[2021-03-19 13:00] VITALS: BP 119/60
[2021-03-19] MEDS: CLINDAMYCIN HCL 150 MG CAP PO SCH ×2 (15:13→21:10)
[2021-03-19 17:00] VITALS: BP 103/67
[2021-03-19] MEDS: Ensure Enlive Strawberry 8oz Bottle PO SCH (20:49)
[2021-03-19] MEDS: LATANOPROST 0.005 % OPTH(EYE) SOL 2.5ML OP SCH (21:09)
[2021-03-19] MEDS: ATORVASTATIN 20 MG TAB PO SCH (21:10)
[2021-03-19] MEDS: DONEPEZIL HYDROCHLORIDE 5 MG TAB PO SCH (21:11)
[2021-03-19 22:00] VITALS: BP 135/65
[2021-03-20 05:08] VITALS: BP 159/64
[2021-03-20] MEDS: CARBIDOPA W LEVODOPA 25/100mg TABLET PO SCH ×3 (05:18→21:52)
[2021-03-20] MEDS: CLINDAMYCIN HCL 150 MG CAP PO SCH ×3 (05:19→21:52)
[2021-03-20 06:23] LABS: Calcium 8.3 mg/dL (8.5-10.1); Potassium 4.6 mmol/L (3.5-5.1)
[2021-03-20 06:26] LABS: BUN/Creatinine Ratio 37.5
[2021-03-20 06:35] LABS: Hemoglobin 14.2 g/dL (12.2-16.2)
[2021-03-20 06:39] LABS: Hematocrit 41.2 % (36.0-46.0); Mean Corpuscular Hemoglobin 31.6 pg (28.0-32.0); Mean Corpuscular Hgb Conc. 34.5 g/dL (32.0-36.0); Mean Corpuscular Volume 91.7 fL (80.0-100.0); Platelet Count (auto) 192 10^3/uL (140-450); Red Blood Cells 4.49 10^6/uL (4.0-5.20); White Blood Cell 6.9 10^3/uL (4.4-10.8)
[2021-03-20 06:41] LABS: Basophils % (manual) 0 (0.0-2.0); Blast Cells 0; Metamyelocytes % 0; Myelocytes % 0; Promyelocytes % 0; Reactive Lymphocytes 0
[2021-03-20 07:51] LABS: Band Neutrophils % (manual) 2; Eosinophils % (manual) 6 (0-7); Lymphocytes % (manual) 24 (10.0-50.0); Monocytes % (manual) 11 (0-12)
[2021-03-20] MEDS: Ensure Enlive Strawberry 8oz Bottle PO SCH ×2 (08:46→18:29)
[2021-03-20 09:00] VITALS: BP 125/63
[2021-03-20] MEDS: methIMAzole 5 MG TAB PO SCH (09:13)
[2021-03-20] MEDS: AMANTADINE HCL 100 MG CAP PO SCH ×2 (09:14→21:52)
[2021-03-20] MEDS: POTASSIUM CHL 10 Meq TABLET PO SCH (09:15)
[2021-03-20] MEDS: levoFLOXacin 250 MG TAB PO SCH (09:15)
[2021-03-20] MEDS: FUROSEMIDE 20 MG TAB PO SCH (09:16)
[2021-03-20] MEDS: PANTOPRAZOLE 40 MG TAB PO SCH (09:16)
[2021-03-20] MEDS: amLODIPine BESYLATE 5 MG TAB PO SCH (09:17)
[2021-03-20] MEDS: LISINOPRIL 20 MG TAB PO SCH (09:17)
[2021-03-20] MEDS: SELEGILINE HCL 5 MG CAP PO SCH ×2 (09:24→21:52)
[2021-03-20] MEDS ORDERED: levoFLOXacin 500 MG TAB PO SCH (10:00)
[2021-03-20 13:00] VITALS: BP 97/60
[2021-03-20 17:00] VITALS: BP 101/50
[2021-03-20] MEDS: HYDROcodone-ACET 5/325MG TAB PO PRN (19:55)
[2021-03-20] MEDS: ATORVASTATIN 20 MG TAB PO SCH (21:52)
[2021-03-20] MEDS: DONEPEZIL HYDROCHLORIDE 5 MG TAB PO SCH (21:52)
[2021-03-20] MEDS: LATANOPROST 0.005 % OPTH(EYE) SOL 2.5ML OP SCH (21:52)
[2021-03-20 22:00] VITALS: BP 153/68
[2021-03-21 05:00] VITALS: BP 148/76
[2021-03-21] MEDS: CLINDAMYCIN HCL 150 MG CAP PO SCH ×3 (06:44→22:46)
[2021-03-21] MEDS: CARBIDOPA W LEVODOPA 25/100mg TABLET PO SCH ×3 (06:44→22:47)
[2021-03-21 08:00] VITALS: BP 130/79
[2021-03-21 09:00] VITALS: BP 130/79
[2021-03-21] MEDS: SELEGILINE HCL 5 MG CAP PO SCH ×2 (10:00→22:00)
[2021-03-21] MEDS: levoFLOXacin 250 MG TAB PO SCH (10:01)
[2021-03-21] MEDS: POTASSIUM CHL 10 Meq TABLET PO SCH (10:01)
[2021-03-21] MEDS: FUROSEMIDE 20 MG TAB PO SCH (10:01)
[2021-03-21] MEDS: Ensure Enlive Strawberry 8oz Bottle PO SCH ×2 (10:01→18:17)
[2021-03-21] MEDS: amLODIPine BESYLATE 5 MG TAB PO SCH (10:02)
[2021-03-21] MEDS: AMANTADINE HCL 100 MG CAP PO SCH ×2 (10:02→22:47)
[2021-03-21] MEDS: methIMAzole 5 MG TAB PO SCH (10:02)
[2021-03-21] MEDS: LISINOPRIL 20 MG TAB PO SCH (10:03)
[2021-03-21] MEDS: ACETAMINOPHEN 500 MG TAB PO PRN (10:22)
[2021-03-21 13:00] VITALS: BP 121/63
[2021-03-21 17:00] VITALS: BP 123/60
[2021-03-21 21:25] VITALS: BP 135/70
[2021-03-21] MEDS: LATANOPROST 0.005 % OPTH(EYE) SOL 2.5ML OP SCH (22:46)
[2021-03-21] MEDS: DONEPEZIL HYDROCHLORIDE 5 MG TAB PO SCH (22:46)
[2021-03-21] MEDS: ATORVASTATIN 20 MG TAB PO SCH (22:47)
[2021-03-21] MEDS: HYDROcodone-ACET 5/325MG TAB PO PRN (22:48)
[2021-03-22 04:46] VITALS: BP 140/65
[2021-03-22] MEDS: CARBIDOPA W LEVODOPA 25/100mg TABLET PO SCH (06:18)
[2021-03-22] MEDS: CLINDAMYCIN HCL 150 MG CAP PO SCH (06:18)
[2021-03-22 08:00] VITALS: BP 110/70
[2021-03-22] MEDS: Ensure Enlive Strawberry 8oz Bottle PO SCH (08:22)
[2021-03-22 09:00] VITALS: BP 110/70
[2021-03-22] MEDS: SELEGILINE HCL 5 MG CAP PO SCH (10:00)
[2021-03-22] MEDS: POTASSIUM CHL 10 Meq TABLET PO SCH (10:45)
[2021-03-22] MEDS: levoFLOXacin 250 MG TAB PO SCH (10:46)
[2021-03-22] MEDS: FUROSEMIDE 20 MG TAB PO SCH (10:46)
[2021-03-22] MEDS: amLODIPine BESYLATE 5 MG TAB PO SCH (10:47)
[2021-03-22] MEDS: AMANTADINE HCL 100 MG CAP PO SCH (10:47)
[2021-03-22] MEDS: LISINOPRIL 20 MG TAB PO SCH (10:47)
[2021-03-22] MEDS: methIMAzole 5 MG TAB PO SCH (10:47)
[2021-03-22 10:51] VITALS: BP 110/70
== END 2021-03-22 12:05 | disposition hospice, home (50) | DRG 602 ==
LOC: ER 13:13 → EDBD 13:13 → TELE 17:03 → INTOOBSV 17:03 → TELE-CENTR 20:21 → OBSVTOIN 03-17 11:56
PROVIDERS: ADMIT Nurse Practitioner Acute Care; ATTEND Internal Medicine
DX: L03.115 Cellulitis of right lower limb (principal); N17.0 Acute kidney failure with tubular necrosis; G20 Parkinson's disease; N18.31 Chronic kidney disease, stage 3a; E87.6 Hypokalemia; E78.5 Hyperlipidemia, unspecified; I12.9 Hypertensive chronic kidney disease with stage 1 through stage 4 chronic kidney disease, or unspecified chronic kidney disease; F03.90 Unspecified dementia, unspecified severity, without behavioral disturbance, psychotic disturbance, mood disturbance, and anxiety; E03.9 Hypothyroidism, unspecified; Z51.5 Encounter for palliative care; R00.1 Bradycardia, unspecified; Z91.14 Patient's other noncompliance with medication regimen; E05.90 Thyrotoxicosis, unspecified without thyrotoxic crisis or storm; Z66 Do not resuscitate; Z82.49 Family history of ischemic heart disease and other diseases of the circulatory system; Z86.73 Personal history of transient ischemic attack (TIA), and cerebral infarction without residual deficits; Z80.8 Family history of malignant neoplasm of other organs or systems; Z91.19 Patient's noncompliance with other medical treatment and regimen; Z20.822 Contact with and (suspected) exposure to COVID-19
CPT/HCPCS: 36415; 70450; 71045; 80048; 80053; 81001; 83036; 83605; 83735; 84443; 84484; 85007; 85025; 85027; 85610; 85730; 87040; 87081; 87086; 87426; 93005; 93306; 93886; 93970; 96360; 97110; 97116; 97530; G0378; J1956; J3490